=== PATIENT | male | born 1965 | race Caucasian/White ===

== ENCOUNTER 2024-07-03 13:46 | Emergency (ER) | payer OTHER ==
[~2024-07-03] VITALS: Ht 172.7 cm; Wt 70.0 kg
[2024-07-03 13:49] VITALS: O2SAT 98
[2024-07-03] MEDS: SODIUM CHLORIDE 0.9% 1,000 ML IV ONE (14:15)
[2024-07-03 16:57] LABS: BASOPHILS % 0.5 % (0.0-2.0); CHLORIDE 98 mEq/L (98-107); EOSINOPHILS % 0.6 % (0.0-5.0); HEMATOCRIT. 40.9 % (42.0-52.0); HEMOGLOBIN. 13.9 g/dL (14.0-18.0); LYMPHOCYTES % 23.5 % (20.0-50.0); MEAN CORPUSCULAR HEMOGLOBIN 32.8 pg (28.0-32.0); MEAN CORPUSCULAR HGB CONC 34.1 g/dL (31.0-37.0); MEAN CORPUSCULAR VOLUME 96.3 fL (80.0-94.0); MEAN PLATELET VOLUME 7.4 fl (7.4-10.4); MONOCYTES % 6.6 % (2.0-8.0); NEUTROPHILS % 68.8 % (40.0-76.0); PLATELET 165 x1000/uL (130-400); POTASSIUM 3.9 mEq/L (3.5-5.1); RED BLOOD CELL COUNT 4.24 mill/uL (4.7-6.1); RED CELL DISTRIBUTION WIDTH 13.3 % (11.6-14.6); SODIUM 133 mEq/L (136-145); WHITE BLOOD COUNT 5.5 x1000/uL (4.5-11.0)
[2024-07-03 16:58] LABS: CARBON DIOXIDE 24 mEq/L (21-32)
[2024-07-03 17:03] LABS: CREATININE 0.6 mg/dL (0.6-1.3); GLUCOSE 88 mg/dL (70-105)
[2024-07-03 17:04] LABS: ETHANOL BLOOD 236 mg/dL (<10)
[2024-07-03 17:05] LABS: UREA NITROGEN BLOOD < 5 mg/dL (9-23)
[2024-07-03 17:37] LABS: AMMONIA < 17 uMol/L (<32)
[2024-07-03] MEDS ORDERED: ONDA-239 PO (20:16)
[2024-07-03] MEDS ORDERED: OMEP40CA20 MT (20:16)
[2024-07-03 21:07] VITALS: BP 125/81; PULSE 97; RESP 20; TEMP 36.89184; O2SAT 97
== END 2024-07-03 21:09 | disposition home or self-care (01) ==
LOC: ER 13:56 → CANBEDREQ 16:53 → ER 21:09
DX: R41.82 Altered mental status, unspecified (principal); F10.129 Alcohol abuse with intoxication, unspecified; Y90.7 Blood alcohol level of 200-239 mg/100 ml; Z79.899 Other long term (current) drug therapy
CPT/HCPCS: 80048; 80320; 82140; 85025; 36415; 82803; 96360; 99284; J7030; G0480